=== PATIENT | female | born 1965 | race Caucasian/White ===

== ENCOUNTER 2018-10-08 21:17 | Emergency (ER) | payer MEDICAID ==
[2018-10-08] MEDS ORDERED: TORADOL IM ONE (22:47)
--- NOTE | 2018-10-08 22:59 | XRay Report ---
PROCEDURE: XR HIP 2-3V RT TECHNIQUE: Right hip 2 views and AP pelvis HISTORY: fall, right hip/low back pain COMPARISONS: FINDINGS: There is marked chronic appearing skeletal deformity. Skeletal structures are gracile. There is chron ic deformity of the right acetabulum with superior migration of the right hip. No acute fractures are identified IMPRESSION: Chronic skeletal deformities. No acute fracture identified. This document is electronically signed by Laurent Trinidad MD., October 08 2018 11:57:42 PM ET
--- NOTE | 2018-10-08 23:23 | Emergency Department Report ---
ED Fall HPI - General Chief Complaint: Fall Stated Complaint: RIGHT HIP PAIN Time Seen by Provider: 10/08/18 22:15 Source: patient, family, EMS Mode of arrival: Stretcher Limitations: Language Barrier - History of Present Illness Initial Comments: 53-year-old female with a past medical history of high cholesterol and bilateral lateral leg weakness requiring wheelchair use secondary to polio presents to the hospital with complaints of right hip and lower back pain after fall. Patient was sitting on a low chair and fell injuring her right hip and lower back. Patient denies head injury or LOC. She complains of moderate right hip and lower back. It is constant, worse with movement, and worse to palpation. - Related Data Previous Rx's Medication Instructions Recorded Last Taken Type Ibuprofen [Motrin] 600 mg PO Q8H PRN #30 tablet 09/30/14 Unknown Rx Ondansetron [Zofran Odt] 4 mg PO Q6H PRN #20 tab.rapdis 09/30/14 Unknown Rx levoFLOXacin [Levaquin] 750 mg PO QDAY #7 tablet 09/30/14 Unknown Rx oxyCODONE /ACETAMINOPHEN [Percocet 1 tab PO Q6HR PRN #20 tablet 09/30/14 Unknown Rx 5/325] Allergies Allergy/AdvReac Type Severity Reaction Status Date / Time No Known Allergies Allergy Unverified 01/17/15 12:49 ED Review of Systems ROS: Stated complaint: RIGHT HIP PAIN Other details as noted in HPI Comment: All other systems reviewed and negative ED Past Medical Hx - Past Medical History Previous Medical History?: Yes Additional medical history: polio, high cholesterol - Social History Smoking Status: Never Smoker Substance Use Type: None - Medications Home Medications: Home Medications Medication Instructions Recorded Confirmed Last Taken Type Ibuprofen [Motrin] 600 mg PO Q8H PRN #30 tablet 09/30/14 Unknown Rx Ondansetron [Zofran Odt] 4 mg PO Q6H PRN #20 tab.rapdis 09/30/14 Unknown Rx levoFLOXacin [Levaquin] 750 mg PO QDAY #7 tablet 09/30/14 Unknown Rx oxyCODONE /ACETAMINOPHEN [Percocet 1 tab PO Q6HR PRN #20 tablet 09/30/14 Unknown Rx 5/325] ED Physical Exam - General Limitations: Language Barrier, Physical Limitation - Other Other exam information: General: No limitations, patient is alert in no acute distress Head exam: Atraumatic, normocephalic Eyes exam: Normal appearance ENT: Moist mucous membrane Neck exam: Normal inspection, full range of motion, no meningismus nontender Respiratory exam: Clear to auscultation bilateral, no wheezes, rales, crackles Cardiovascular: Normal rate and rhythm, normal heart sounds Abdomen: Soft, nondistended, and nontender, with normal bowel sounds, no rebound, or guarding Extremity: Small lower extremities without any strength/active movment which is chronic. Pain with palpation of right posterior hip and sacrum and also with passive movement. Diffuse midline lumbar tenderness to palpation. Back: Normal Inspection, full range of motion, no tenderness Neurologic: Alert, oriented x3, cranial nerves intact, no motor or sensory deficit Psychiatric: normal affect, normal mood Skin: Warm, dry, intact ED Course Vital Signs 10/08/18 21:23 Temperature 98.7 F Pulse Rate 92 H Respiratory 16 Rate Blood Pressure 154/80 O2 Sat by Pulse 99 Oximetry ED Medical Decision Making - Radiology Data Radiology results: report reviewed PROCEDURE: XR HIP 2-3V RT TECHNIQUE: Right hip 2 views and AP pelvis HISTORY: fall, right hip/low back pain COMPARISONS: FINDINGS: There is marked chronic appearing skeletal deformity. Skeletal structures are gracile. There is chronic deformity of the right acetabulum with superior migration of the right hip. No acute fractures are identified IMPRESSION: Chronic skeletal deformities. No acute fracture identified. PROCEDURE: XR SPINE LUMBOSACRAL 2-3V TECHNIQUE: Lumbar spine radiographs, two views. HISTORY: back pain after fall COMPARISONS: None . FINDINGS: There is significant levoscoliosis of the lumbar spine. No fractures or malalignments are identified. The disc spaces appear normal. Soft tissues are unremarkable. IMPRESSION: There is significant levoscoliosis of the lumbar spine. No fractures or malalignments are identified. . - Medical Decision Making Patient continued to have pain after Toradol. [facility] ordered. Patient presents to the ER with her medication bottles and she has a bottle filled with tramadol. She will be encouraged to take this medication for pain at home. - Differential Diagnosis fracture, contusion, sprain, dislocation Critical Care Time: No Critical care attestation.: If time is entered above; I have spent that time in minutes in the direct care of this critically ill patient, excluding procedure time. ED Disposition Clinical Impression: Fall, Acute right hip pain, Low back strain, Wheelchair dependent Disposition: DC-01 TO HOME OR SELFCARE Is pt being admited?: No Condition: Stable Instructions: Hip Sprain (ED), Low Back Strain (ED), Fall Prevention (ED) Additional Instructions: Take your current tramadol as needed for pain. You may also take [id number] Motrin as needed.. Follow up with your doctor or the clinic/doctor provided. Return if symptoms worsen as indicated by your discharge instructions Referrals: PENNY CARLSON MD [Primary Care Provider] - 3-5 Days your, primary care doctor [Other] - 3-5 Days Time of Disposition: 01:16
--- NOTE | 2018-10-09 00:18 | XRay Report ---
PROCEDURE: XR SPINE LUMBOSACRAL 2-3V TECHNIQUE: Lumbar spine radiographs, two views. HISTORY: back pain after fall COMPARISONS: None . FINDINGS: There is significant levoscoliosis of the lumbar spine. No fractures or malalignments are identified. The disc spaces appear normal. Soft tissues are unremarkable. IMPRESSION: There is significant levoscoliosis of the lumbar spine. No fractures or malalignments are identified. . This document is electronically signed by Americo Schumacher MD., October 09 2018 01:16:37 AM ET
[2018-10-09] MEDS ORDERED: NORCO 5/325 PO ONE (01:12)
[2018-10-09 01:56] VITALS: BP 148/89
== END 2018-10-09 02:12 | disposition home or self-care (01) ==
LOC: ED 21:17
DX: S39.012A Strain of muscle, fascia and tendon of lower back, initial encounter (principal); M25.551 Pain in right hip; E78.00 Pure hypercholesterolemia, unspecified; Z79.899 Other long term (current) drug therapy; W07.XXXA Fall from chair, initial encounter; Y93.89 Activity, other specified; Y92.89 Other specified places as the place of occurrence of the external cause; Y99.8 Other external cause status
CPT/HCPCS: 72100; 73502; 96372; 99284; J1885